=== PATIENT | male | born 1945 | race Caucasian/White ===

== ENCOUNTER 2017-01-08 09:23 | Inpatient (IN) | payer MEDICARE, MEDICAID ==
[~2017-01-08] VITALS: Ht 172.7 cm; Wt 78.0 kg
[~2017-01-08 09:23] MED LIST: Aspirin PO; Bisacodyl RC; DULO60CA45 PO; FINA5TAB4 PO; GABA600T2 PO; HYDR-3976 PO; LAMO300T2 PO; LORA1TAB PO; LOXA25CA PO; LOXA50CA PO; METF10002 PO; TAMS0.4C34 PO
--- NOTE | 2017-01-08 09:25 | NUR ---
AAOX3, CAME TO ER C/O GENERALIZED WEAKNESS, FACE SYMMETRICAL, NEURO INTACT. SKIN IS WARM AND DRY. RESP IS EVEN AND UNLABORED WITH NAD NOTED. LB=[id number] IN THE FIELD. DR KEMP AT BS FOR EVKEITH.
[2017-01-08] MEDS ORDERED: IV NS 0.9% 1,000 ML BAG IV ONE (09:30)
[2017-01-08] MEDS ORDERED: IV SET PRIMARY PUMP SET 1 EA INFUS.SET MC ONE ×2 (09:40→15:01)
[2017-01-08] MEDS ORDERED: IV NS 0.9% 1,000 ML ONE (09:40)
--- NOTE | 2017-01-08 09:47 | NUR ---
DANO DONATO G1 ACCESSED. BLOOD SAMPLE SENT TO LAB
--- NOTE | 2017-01-08 09:49 | NUR ---
PATIENT WAS TAKEN TO CT
[2017-01-08 09:50] LABS: BASOPHILS % (AUTO) 0.6 % (0.0-2.0); EOSINOPHILS # (AUTO) 0.2 /CMM (0.0-0.7); EOSINOPHILS % (AUTO) 2.4 % (0.0-6.0); HEMATOCRIT 42 % (39-51); HEMOGLOBIN 13.4 g/dL (13.5-17.5); LYMPHOCYTES # (AUTO) 2.9 /CMM (0.8-4.8); LYMPHOCYTES % (AUTO) 36.7 % (20.0-44.0); MEAN CORPUSCULAR HEMOGLOBIN 31 PG (26.0-33.0); MEAN CORPUSCULAR HGB CONC 32 g/dl (31.0-36.0); MEAN CORPUSCULAR VOLUME 96 fL (80-96); MONOCYTES # (AUTO) 0.7 /CMM (0.1-1.30); MONOCYTES % (AUTO) 8.9 % (2.0-12.0); NEUTROPHILS # (AUTO) 4.1 /CMM (1.8-8.9); NEUTROPHILS % (AUTO) 51.4 % (43.0-81.0); PLATELET COUNT (AUTO) 300 /CMM (150-450); RDW COEFFICIENT OF VARIATION 12.9 (11.5-15.0); RED BLOOD CELL COUNT(AUTO) 4.36 MIL/uL (4.5-6.0); WHITE BLOOD COUNT (AUTO) 7.9 K/uL (4.3-11.0)
[2017-01-08 10:00] LABS: CALCIUM, SERUM 9.1 mg/dL (8.5-10.1); CARBON DIOXIDE 27 mmol/L (21-32); CHLORIDE 104 mmol/L (98-107); CREATININE 0.9 mg/dL (0.6-1.3); GLUCOSE 147 mg/dL (74-106); POTASSIUM 4.1 mmol/L (3.5-5.1); SODIUM SERUM 140 mmol/L (136-145); UREA NITROGEN, BLOOD 10 mg/dL (7-18)
[2017-01-08 10:04] LABS: INR 0.97 (0.87-1.13); PROTHROMBIN TIME 10.1 SECS (9.5-12.7)
--- NOTE | 2017-01-08 10:04 | NUR ---
URINAL PROVIDED FOR URINE COLLECTION
[2017-01-08 10:06] LABS: ALANINE AMINOTRANSFERASE 13 U/L (12-78); ALBUMIN 3.8 g/dL (3.4-5.0); ALKALINE PHOSPHATASE 63 U/L (46-116); ASPARTATE AMINOTRANSFERASE 11 U/L (15-37); BILIRUBIN,DIRECT 0.1 mg/dL (0.0-0.2); BILIRUBIN,TOTAL 0.4 mg/dL (0.2-1.0); TOTAL PROTEIN, SERUM 7.3 g/dL (6.4-8.2)
[2017-01-08 10:08] LABS: TROPONIN I < 0.017 ng/mL (0.00-0.056)
[2017-01-08] MEDS ORDERED: HYDR-3652 PO (10:32)
[2017-01-08] MEDS ORDERED: NAPR375T3 PO (10:32)
[2017-01-08 10:58] LABS: APPEARANCE,URINE Clear (CLEAR); BILIRUBIN,URINE Negative (NEGATIVE); BLOOD, URINE Negative Ery/uL (NEGATIVE); COLOR,URINE Yellow (YELLOW); KETONES,URINE Negative (NEGATIVE); LEUKOCYTE ESTERASE ,URINE Trace (NEGATIVE); NITRITE, URINE Negative (NEGATIVE); PROTEIN,URINE Negative (NEGATIVE); UGLUCOSE Negative (NEGATIVE); UROBILINOGEN,URINE 0.2 EU/dL (0.2)
--- NOTE | 2017-01-08 10:58 | NUR ---
PAGED DR. Arvin ECHOLS HUMAN RESOURCES ANALYST PANEL
[2017-01-08 11:07] LABS: THYROID STIMULATING HORMONE 1.742 uIU/mL (0.358-3.74)
[2017-01-08 11:08] LABS: BACTERIA,URINE None seen /HPF (None Seen); RBC,URINE 0-2 /HPF (0-2); SQUAMOUS EPITHELIAL CELL,UR Few /HPF (None Seen)
--- NOTE | 2017-01-08 11:34 | NUR ---
REPORT GIVEN TO NURSE [place] FOR RAMIRO
[2017-01-08 12:00] VITALS: BP 130/81
--- NOTE | 2017-01-08 12:00 | NUR ---
METALLIC YARN SLITTING MACHINE OPERATOR NOTES RECEIVED NEW ADMISSION FROM ER VIA [facility]. PATIENT A/O X 4, IN NO APPARENT DISTRESS, DENIES PAIN, DENIES SOB. IV LINE ON RAC PATENT. SKIN ASSESSMENT DONE NOTED WITH SACRAL REDNESS. ALL NEEDS MET, KEPT CLEAN AND DRY. CALL LIGHT WITHIN REACH. AWAITING ADMISSION ORDERS.
[2017-01-08] MEDS ORDERED: MAGNESIUM HYDROXIDE 30 ML UDC PO PRN (13:00)
[2017-01-08] MEDS: NAPROXEN 375 MG TABLET PO SCH ×2 (13:00→16:41)
[2017-01-08] MEDS ORDERED: MAG HYDROX/AL HYDROX/SIMETH 30 ML UDC PO PRN (13:00)
[2017-01-08] MEDS ORDERED: ONDANSETRON HCL/PF 4 MG/2 ML VIAL IVP PRN (13:00)
[2017-01-08] MEDS ORDERED: ZOLPIDEM TARTRATE 5 MG TABLET PO PRN (13:00)
[2017-01-08] MEDS ORDERED: ACETAMINOPHEN 325 MG TABLET PO PRN (13:00)
[2017-01-08] MEDS ORDERED: LamoTRIgine 100 MG TABLET PO SCH (13:30)
[2017-01-08] MEDS ORDERED: LOXAPINE SUCCINATE PO SCH (13:30)
[2017-01-08] MEDS: TAMSULOSIN 0.4 MG CAP.SR.24H PO SCH (15:07)
[2017-01-08] MEDS: GABAPENTIN 300 MG CAPSULE PO SCH ×2 (15:07→16:41)
[2017-01-08] MEDS: FINASTERIDE (5 MG) 5 MG TABLET PO SCH (15:07)
[2017-01-08 16:00] VITALS: BP 130/76
[2017-01-08] MEDS: METFORMIN 500 MG TABLET PO SCH (16:40)
[2017-01-08] MEDS: HYDROCODONE/APAP 5/325MG 1 EACH TABLET PO PRN (16:43)
[2017-01-08] MEDS: IV NS 0.9% 1,000 ML IV PRN (17:46)
--- NOTE | 2017-01-08 18:30 | NUR ---
INFORMATION ARCHITECT CLOSING NOTES PATIENT IN BED, A/OX4, NO APPARENT DISTRESS NOTED. ALL DUE MEDS GIVE, ALL NEEDS MET. ON TELE MONITORING SR78. IV LINE ON RAC PATENT INFUSING NS AT 75ML/HR. WILL ENDORSE CARE TO PM SHIFT.
--- NOTE | 2017-01-08 19:40 | NUR ---
TELE/RN NOTES RECEIVED PT. LYING IN BED. AWAKE, ALERT AND ORIENTED X3. BREATHING EVEN AND UNLABORED ON ROOM AIR. NO SOB, RESPIRATORY DISTRESS OR COMPLAINTS OF PAIN NOTED AT THIS TIME. PT. WITH HANDKERCHIEF CUTTER PRESENT AND INTACT. CURRENT RHYTHM = SINUS RHYTHM HR 72. PT. WITH RIGHT AC 18 GAUGE PERIPHERAL IV PRESENT, PATENT AND INTACT ADMINISTERING TO PT. NS @ 75 ML/HR. BED IN LOWEST POSITION, CALL LIGHT WITHIN REACH, WILL CONTINUE TO MONITOR.
[2017-01-08 20:00] VITALS: BP 144/79
[2017-01-08] MEDS: LamoTRIgine 100 MG TABLET PO SCH (20:29)
[2017-01-09] VITALS: BP 134/84
[2017-01-09] MEDS: HYDROCODONE/APAP 5/325MG 1 EACH TABLET PO PRN (04:02)
[2017-01-09 04:07] VITALS: BP 138/81
[2017-01-09 06:44] VITALS: BP 134/78
--- NOTE | 2017-01-09 06:47 | NUR ---
TELE/RN NOTES PT. LYING IN BED RESTING. BREATHING EVEN AND UNLABORED ON ROOM AIR. NO SOB, RESPIRATORY DISTRESS OR COMPLAINTS OF PAIN NOTED AT THIS TIME. PT. WITH HAND SCRAPER PRESENT AND INTACT. CURRENT RHYTHM = SINUS RHYTHM HR 68. PT. WITH RIGHT AC 18 GAUGE PERIPHERAL IV PRESENT, PATENT AND INTACT ADMINISTERING TO PT. NS @ 75 ML/HR. ALL PT. NEEDS MET. PT. ENCOURAGED TO TURN AND REPOSITION Q2H AND NEEDED THROUGHOUT SHIFT. BED IN LOWEST POSITION, CALL LIGHT WITHIN REACH, WILL ENDORSE TO DAYSHIFT NURSE FOR CONTINUITY OF CARE.
[2017-01-09 07:20] LABS: BASOPHILS % (AUTO) 0.3 % (0.0-2.0); EOSINOPHILS # (AUTO) 0.2 /CMM (0.0-0.7); EOSINOPHILS % (AUTO) 1.7 % (0.0-6.0); HEMATOCRIT 41 % (39-51); HEMOGLOBIN 13.8 g/dL (13.5-17.5); LYMPHOCYTES # (AUTO) 4.6 /CMM (0.8-4.8); LYMPHOCYTES % (AUTO) 45.9 % (20.0-44.0); MEAN CORPUSCULAR HEMOGLOBIN 32 PG (26.0-33.0); MEAN CORPUSCULAR HGB CONC 34 g/dl (31.0-36.0); MEAN CORPUSCULAR VOLUME 96 fL (80-96); MONOCYTES # (AUTO) 0.8 /CMM (0.1-1.30); MONOCYTES % (AUTO) 8.3 % (2.0-12.0); NEUTROPHILS # (AUTO) 4.4 /CMM (1.8-8.9); NEUTROPHILS % (AUTO) 43.8 % (43.0-81.0); PLATELET COUNT (AUTO) 280 /CMM (150-450); RDW COEFFICIENT OF VARIATION 13.8 (11.5-15.0); RED BLOOD CELL COUNT(AUTO) 4.26 MIL/uL (4.5-6.0)
--- NOTE | 2017-01-09 07:25 | NUR ---
INGOT STRIPPER OPENING RECEIVED PATIENT A/OX4 DENIES SOB, DIFFICULTY BREATHING OR PAIN AT THIS TIME. TELE NSR. PATIENT AWARE NOT TO GET OUT OF BED WITHOUT PHYSICAL THERAPY OR TAIL TRIMMER/RN AT SIDE. PATIENT STATES NO NEEDS AT THIS TIME AND APPEARS STABLE. PATIENT AWARE PENDING NEURO EVAL AND PHYSICAL THERAPY CONSULTS TODAY. CALL LIGHT IN REACH, BED LOWERED AND LOCKED, RAILS UPX3 FOR SAFETY AND WILL ROUND Q2H OR LESS PER NEEDS
[2017-01-09 07:26] LABS: CALCIUM, SERUM 9.1 mg/dL (8.5-10.1); CARBON DIOXIDE 25 mmol/L (21-32); CHLORIDE 106 mmol/L (98-107); CREATININE 0.7 mg/dL (0.6-1.3); GLUCOSE 123 mg/dL (74-106); MAGNESIUM 1.7 mg/dL (1.8-2.4); PHOSPHORUS 3.6 mg/dL (2.5-4.9); POTASSIUM 3.7 mmol/L (3.5-5.1); SODIUM SERUM 141 mmol/L (136-145); UREA NITROGEN, BLOOD 8 mg/dL (7-18)
[2017-01-09 08:00] VITALS: BP 134/78
[2017-01-09 08:19] LABS: CHOLESTEROL 248 mg/dL (<200); HDL CHOLESTEROL 47 mg/dL (40-60); LDL 169 mg/dL (0-99); THYROID STIMULATING HORMONE 1.436 uIU/mL (0.358-3.74); TRIGLYCERIDES 171 mg/dL (30-150)
[2017-01-09] MEDS: FINASTERIDE (5 MG) 5 MG TABLET PO SCH (08:20)
[2017-01-09] MEDS: LamoTRIgine 100 MG TABLET PO SCH (08:20)
[2017-01-09] MEDS: METFORMIN 500 MG TABLET PO SCH ×2 (08:20→22:02)
[2017-01-09] MEDS: GABAPENTIN 300 MG CAPSULE PO SCH ×3 (08:20→16:24)
[2017-01-09] MEDS: IV NS 0.9% 1,000 ML IV PRN (08:20)
[2017-01-09] MEDS: TAMSULOSIN 0.4 MG CAP.SR.24H PO SCH (08:20)
[2017-01-09] MEDS: NAPROXEN 375 MG TABLET PO SCH ×2 (08:21→22:02)
[2017-01-09] MEDS ORDERED: LAMICTAL 300 MG PO SCH (09:00)
[2017-01-09] MEDS: DULOXETINE HCL 30 MG CAPSULE.DR PO SCH (09:18)
--- NOTE | 2017-01-09 09:57 | NUR ---
MS RN NOTES SPOKE WITH SARAH OVERHEAD CRANE TRUCK LOADER TO NOTIFY OF MD PLAN FOR REB/HOME HEALTH PT
--- NOTE | 2017-01-09 11:02 | NUR ---
WOUND CARE CONSULT: PT PRESENTS WITH RASH TO INNER BUTTOCKS, PRESENT ON ADMISSION. SOME SKIN STAINING AND IRRITATION NOTED. RECOMMENDATIONS DISCUSSED WITH NURSING STAFF. WILL SEE PRN. STOKES SCORE CURRENTLY 16. IN AGREEMENT WITH PLAN OF CARE. Addendum: 01/09/17 at 1104 by KEY SANCHEZ WNDNU Amended: Links added.
[2017-01-09] MEDS ORDERED: SECONDARY IV SET 1 EA INFUS.SET MC ONE (11:46)
[2017-01-09] MEDS: Z GUARD REMEDY 2 OZ OINT TP PRN ×2 (11:55→16:58)
[2017-01-09] MEDS: Magnesium 1GM/D5W 100ML PREMIX 100 ML IV SCH ×2 (11:55→13:02)
--- NOTE | 2017-01-09 12:01 | NUR ---
MS RN NOTES PATIENT PROVIDED LAMICTAL. TAKEN DOWN TO PHARMACY
--- NOTE | 2017-01-09 12:46 | NUR ---
MS RN NOTES NOTIFIED MD PATIENT IS DIABETIC OK ORDER ACHS MILD SLIDING SCALE.
[2017-01-09] MEDS ORDERED: DEXTROSE 50%-WATER 50 ML DISP.SYRIN IV PRN (13:00)
[2017-01-09] MEDS ORDERED: INSULIN REGULAR, HUMAN 100 UNIT/ML 3 ML VIAL SQ PRN (13:00)
[2017-01-09] MEDS: CLOTRIMAZOLE 1% 15 GM TUBE TP SCH ×2 (13:03→16:22)
--- NOTE | 2017-01-09 13:15 | NUR ---
MS RN NOTES NOTIFIED MD OF PATIENT UPDATED MEDICATIONS OK TO UPDATE. LAMICTAL 300MG HS AND LOXAPINE 75MG HS. DC BID LAMICTAL AND OK TO CHANGE TO Q12H METFORMIN AND NEURONTIN
--- NOTE | 2017-01-09 13:20 | NUR ---
MS RN NOTES PATIENT HAS ALL MEDICATIONS AT BEDSIDE. EXPLAINED WE CANNOT HAVE THESE AT BEDSIDE AND I NEED TO TAKE THEM TO THE PHARMACY OR CAREGIVER NEEDS TO REMOVE THEM FROM THE ROOM. PER PATIENT CAREGIVER WILL TAKE HOME. TAKING LOXAPINE TO PHARMACY TO CONTINUE FOR PATIENT
[2017-01-09] MEDS ORDERED: DULOXETINE HCL 30 MG CAPSULE.DR PO SCH (13:30)
[2017-01-09 16:00] VITALS: BP 124/78
[2017-01-09] MEDS: LORAZEPAM 1 MG TABLET PO PRN (16:20)
--- NOTE | 2017-01-09 16:26 | NUR ---
MS RN NOTES EDUCATED PATIENT ON IMPORTANCE OF TURNING AND OFFLOADING SACRUM. APPLIED PILLOWS TO OFFLOAD AND PATIENT REPOSITIONS TO SACRUM AGAIN. WILL CONTINUE TO REMIND AND ASSIST PATIENT TO TURN AND OFFLOAD.
[2017-01-09] MEDS: BLOOD SUGAR DIAGNOSTIC 1 EACH STRIP IN SCH ×2 (16:59→22:14)
[2017-01-09] MEDS ORDERED: GABAPENTIN 400 MG CAPSULE PO SCH (17:00)
--- NOTE | 2017-01-09 18:41 | NUR ---
MS RN CLOSING PATIENT STABLE NO COMPLICATIONS NO CHANGES. PATIENT WAS ABLE TO GET UP TO THE BSC TODAY WITH NO COMPLICATIONS. ALL DUE MEDS GIVEN AND ALL NEEDS MET. CALL LIGHT IN REACH, BED LOWERED AND LOCKED, RAILS UPX3 FOR SAFETY WITH BED ALARM ON AND WILL ENDORSE CARE TO RN FOR RAMIRO. PATIENT IS DOING BETTER AND TURNING AND OFFLOADING DUE TO BEING MORE MOBILE TODAY.
--- NOTE | 2017-01-09 19:20 | NUR ---
MS/RN NOTES RECEIVED PT. LYING IN BED RESTING. PT. IS EASILY AROUSABLE TO NAME. AWAKE, ALERT AND ORIENTED X3. BREATHING EVEN AND UNLABORED ON ROOM AIR. NO SOB, RESPIRATORY DISTRESS OR COMPLAINTS OF PAIN NOTED AT THIS TIME. PT. WITH RIGHT AC 18 GAUGE PERIPHERAL IV PRESENT, PATENT AND INTACT. BED IN LOWEST POSITION, SIDE RAILS UP X2, BED ALARM ON, CALL LIGHT WITHIN REACH, WILL CONTINUE TO MONITOR.
[2017-01-09 20:47] VITALS: BP 117/74
[2017-01-09] MEDS ORDERED: LOXAPINE 25 MG PO SCH (22:00)
[2017-01-09] MEDS ORDERED: LAMICTAL 150 MG PO SCH (22:00)
[2017-01-09] MEDS ORDERED: LamoTRIgine 100 MG TABLET PO SCH ×2 (22:00)
--- NOTE | 2017-01-09 23:00 | NUR ---
MS/RN NOTES PT. REFUSING IV FLUIDS AT THIS TIME. PT. STATES HE DRINKS ENOUGH WATER AND DOES NOT WANT TO BE ATTACHED TO THE IV. EDUCATED PT. ABOUT IMPORTANCE OF IV HYDRATION AND ENCOURAGED PT. TO DRINK MORE WATER. PT. VERBALIZED UNDERSTANDING. WILL CONTINUE TO MONITOR.
[2017-01-10] MEDS: BLOOD SUGAR DIAGNOSTIC 1 EACH STRIP IN SCH ×2 (06:35→12:04)
--- NOTE | 2017-01-10 06:50 | NUR ---
MS/RN NOTES PT. LYING IN BED RESTING. PT. IS EASILY AROUSABLE TO NAME. AWAKE, ALERT AND ORIENTED X3. BREATHING EVEN AND UNLABORED ON ROOM AIR. NO SOB, RESPIRATORY DISTRESS OR COMPLAINTS OF PAIN NOTED AT THIS TIME AND THROUGHOUT SHIFT. EDUCATED PT. ABOUT IMPORTANCE OF TURNING AND REPOSITIONING EVERY 2 HOURS TO PREVENT PRESSURE SORES. PT. VERBALIZED UNDERSTANDING BUT CONTINUES TO NEED CONSTANT REMINDING. PT. WITH RIGHT AC 18 GAUGE PERIPHERAL IV PRESENT, PATENT AND INTACT. PT. CONTINUES TO REFUSE IV FLUIDS. ALL PT. NEEDS MET. BED IN LOWEST POSITION, SIDE RAILS UP X2, BED ALARM ON, CALL LIGHT WITHIN REACH, WILL ENDORSE TO DAYSHIFT NURSE FOR CONTINUITY OF CARE.
--- NOTE | 2017-01-10 07:00 | NUR ---
MS RN OPENING RECEIVED PATIENT A/OX4 FORGETFUL AT TIMES. NO SOB, DIFFICULTY BREATHING OR PAIN AT THIS TIME. PATIENT HOWEVER STATES HE HAS CONSTANT SCIATICA PAIN BUT IS MAYBE A 2/10 AND TOLERABLE. ALL NEEDS IN REACH AND PATIENT STATES NO NEEDS AT THIS TIME. EDUCATED ON MD PLAN FOR DC TO ACUTE REHAB AND PATIENT STATES UNDERSTANDING. UPDATED ON LABS FOR THIS AM. CALL LIGHT IN REACH, BED LOWERED AND LOCKED, RAILS UPX3 FOR SAFETY AND WILL ROUND Q2H OR LESS PER NEEDS. EDUCATED PATIENT ON TURNING AND OFFLOADING, GETTING INTO CHAIR TODAY WITH ASSISTANCE. PATIENT NEEDS REMINDERS TO TURN AND OFFLOAD.
[2017-01-10 07:23] LABS: CALCIUM, SERUM 9.2 mg/dL (8.5-10.1); CARBON DIOXIDE 25 mmol/L (21-32); CHLORIDE 107 mmol/L (98-107); CREATININE 0.7 mg/dL (0.6-1.3); GLUCOSE 116 mg/dL (74-106); POTASSIUM 4.1 mmol/L (3.5-5.1); SODIUM SERUM 142 mmol/L (136-145); UREA NITROGEN, BLOOD 11 mg/dL (7-18)
[2017-01-10 08:00] VITALS: BP 106/71
[2017-01-10] MEDS: TAMSULOSIN 0.4 MG CAP.SR.24H PO SCH (08:15)
[2017-01-10] MEDS: NAPROXEN 375 MG TABLET PO SCH (08:16)
[2017-01-10] MEDS: GABAPENTIN 300 MG CAPSULE PO SCH ×2 (08:16→12:04)
[2017-01-10] MEDS: FINASTERIDE (5 MG) 5 MG TABLET PO SCH (08:16)
[2017-01-10] MEDS: DULOXETINE HCL 30 MG CAPSULE.DR PO SCH (08:16)
[2017-01-10] MEDS: METFORMIN 500 MG TABLET PO SCH (08:16)
[2017-01-10] MEDS: CLOTRIMAZOLE 1% 15 GM TUBE TP SCH (08:17)
[2017-01-10] MEDS: Z GUARD REMEDY 2 OZ OINT TP PRN (08:18)
--- NOTE | 2017-01-10 08:47 | NUR ---
MS RN NOTES PER MD ECHOLS OK TO DC IVF PATIENT REFUSING. GOOD ORAL INTAKE.
[2017-01-10] MEDS: LORAZEPAM 1 MG TABLET PO PRN (14:10)
--- NOTE | 2017-01-10 14:50 | NUR ---
MS RN NOTES PATIENT EDUCATED ON DISCHARGE AND STATED UNDERSTANDING. WILL CALL ENCINO FOR REPORT. PATIENT BELONGINGS ALL ACCOUNTED FOR AND SIGNED. PATIENT ASSISTED TO HAVE BED BATH COMPLETED AND ASSISTED TO CHAIR.
--- NOTE | 2017-01-10 15:02 | NUR ---
MS RN NOTES CALLED AND GAVE REPORT TO MARK VILLAGOMEZ AT [facility]
[2017-01-10] MEDS: HYDROCODONE/APAP 5/325MG 1 EACH TABLET PO PRN (15:10)
--- NOTE | 2017-01-10 15:24 | NUR ---
MS RN NOTES IV REMOVED PRESSURE AND DRESSING APPLIED NO BLEEDING NOTED. PATIENT STABLE AT THIS TIME AMBULANCE HERE FOR FARM REPORTER. PER PATIENT REQUEST DEEPTHI ROBERTS BROUGHT UP BEFORE PATIENT TRANSPORT
--- NOTE | 2017-01-10 15:50 | NUR ---
MS PIPE FITTER MAINTENANCE PATIENT STABLE NO COMPLICATIONS NO CHANGES. ALL DUE MEDS GIVEN AND ALL NEEDS MET. PATIENT AT BASELINE. MEDICATIONS GIVEN TO EMT TO GIVE TO ASHWIN VILLAGOMEZ AT [facility]. PATIENT LEFT IN STABLE CONDITION NO COMPLICATIONS.
== END 2017-01-10 16:10 | DRG 948 ==
LOC: ER 09:24 → TELE 11:23 → MED 01-09 08:50
PROVIDERS: ADMIT Internal Medicine; ATTEND Internal Medicine
DX: R53.1 Weakness (principal); I69.851 Hemiplegia and hemiparesis following other cerebrovascular disease affecting right dominant side; M32.9 Systemic lupus erythematosus, unspecified; M19.90 Unspecified osteoarthritis, unspecified site; J44.9 Chronic obstructive pulmonary disease, unspecified; I10 Essential (primary) hypertension; F31.9 Bipolar disorder, unspecified; Z96.659 Presence of unspecified artificial knee joint
CPT/HCPCS: 36415; 70450-TC; 71010-TC; 80048-TC; 80061-TC; 80076-TC; 81000-TC; 82550-TC; 82962-TC; 83605-TC; 83735-TC; 84100-TC; 84443-TC; 84484-TC; 85025-TC; 85730-TC; 87040-TC; 87081-TC; 87086-TC; 93307-TC; 97001-TC; A4606; J1815; J3475; J7030; Z7610

== ENCOUNTER 2018-03-31 16:25 | Inpatient (IN) | payer MEDICARE, MEDICAID ==
[~2018-03-31] VITALS: Ht 172.7 cm; Wt 70.3 kg
[~2018-03-31 16:25] MED LIST changes: -Aspirin PO; -Bisacodyl RC; -HYDR-3976 PO; +HYDR-4209 PO; -LORA1TAB PO; -LOXA50CA PO; +METF-442 PO; -METF10002 PO; +NAPR-1192 PO
--- NOTE | 2018-03-31 17:05 | NUR ---
[facility] FOR GEROPSYCH ADMISSION, ON 5150 HOLD FOR DTS PLAN IS TO OD WITH LORAZEPAM. PATIENT IS CALM AND COOPERATIVE. A/OX 2, BREATHING EVEN AND UNLABORED. NO SOB, NAD, VITALS STABLE. SAFETY AND COMFORT MEASURES IN PLACE. AWAITING MD ORDERS.
--- NOTE | 2018-03-31 17:15 | NUR ---
SALES AND MANAGEMENT TRAINEE AT BEDSIDE FOR BLOOD DRAW.
--- NOTE | 2018-03-31 17:26 | NUR ---
PER DR. MATOS, NO NEED TO COLLECT URINE SAMPLE AT THIS TIME.
[2018-03-31 17:27] LABS: BASOPHILS % (AUTO) 0.5 % (0.0-2.0); EOSINOPHILS % (AUTO) 1.3 % (0.0-6.0); HEMATOCRIT 41 % (39-51); HEMOGLOBIN 13.5 g/dL (13.5-17.5); LYMPHOCYTES # (AUTO) 2.7 /CMM (0.8-4.8); LYMPHOCYTES % (AUTO) 35.9 % (20.0-44.0); MEAN CORPUSCULAR HGB CONC 33 g/dl (31.0-36.0); MEAN CORPUSCULAR VOLUME 96 fL (80-96); MONOCYTES # (AUTO) 0.6 /CMM (0.1-1.30); MONOCYTES % (AUTO) 7.7 % (2.0-12.0); NEUTROPHILS % (AUTO) 54.6 % (43.0-81.0); PLATELET COUNT (AUTO) 359 /CMM (150-450); RDW COEFFICIENT OF VARIATION 12.5 (11.5-15.0); RED BLOOD CELL COUNT(AUTO) 4.26 MIL/uL (4.5-6.0); WHITE BLOOD COUNT (AUTO) 7.4 K/uL (4.3-11.0)
[2018-03-31 17:39] LABS: CALCIUM, SERUM 9.6 mg/dL (8.5-10.1); CARBON DIOXIDE 30 mmol/L (21-32); CHLORIDE 103 mmol/L (98-107); CREATININE 0.6 mg/dL (0.6-1.3); GLUCOSE 102 mg/dL (74-106); POTASSIUM 4.4 mmol/L (3.5-5.1); SODIUM SERUM 138 mmol/L (136-145); UREA NITROGEN, BLOOD 13 mg/dL (7-18)
[2018-03-31 17:49] LABS: ALANINE AMINOTRANSFERASE 19 U/L (12-78); ALBUMIN 3.9 g/dL (3.4-5.0); ALKALINE PHOSPHATASE 74 U/L (46-116); ASPARTATE AMINOTRANSFERASE 11 U/L (15-37); BILIRUBIN,DIRECT 0.1 mg/dL (0.0-0.2); BILIRUBIN,TOTAL 0.3 mg/dL (0.2-1.0); SALICYLATE 4.7 mg/dL (2.8-20.0); TOTAL PROTEIN, SERUM 7.4 g/dL (6.4-8.2)
[2018-03-31 17:52] LABS: ACETAMINOPHEN < 0 ug/ml (10-30); ALCOHOL, BLOOD 0 mg/dL (0-0)
[2018-03-31] MEDS ORDERED: BUSP10TA35 PO (18:08)
--- NOTE | 2018-03-31 18:36 | NUR ---
REPORT GIVEN TO ZULEIKA VILLAGOMEZ FOR RAMIRO UPON ADMISSION.
--- NOTE | 2018-03-31 18:40 | NUR ---
PATIENT TRANSPORTED TO [facility] FOR ADMISSION
[2018-03-31 19:00] VITALS: BP 155/84
--- NOTE | 2018-03-31 19:00 | NUR ---
GPS-RN ADMITTED A 72-Y/O MALE, ADMITTED FROM [facility]. PT IS ON 5150 HOLD FOR DTS. PER HOLD PATIENT STATED HE HAS SUICIDAL THOUGHTS AND PLANS TO TAKE ALL HIS MEDICATION. PATIENT REPORTED "ESCAPE" PLAN OF TAKING HIS MEDICATION. PATIENT HAS STOCK PILED 7 BOTTLES OF LORAZEPAM. UPON FACE TO FACE ASSESSMENT, PATIENT APPEARS TO BE ALERT, ORIENTED X3-4, DEPRESSED. DENIES SI/HI AT THIS TIME. NO ACUTE DISTRESS NOTED. CONTINENT OF BOWEL AND BLADDER. DENIES PAIN OR DISCOMFORT. AMBULATORY WITH ASSISTIVE DEVICE. BELONGINGS INVENTORIED AND CHECKED FOR CONTRABAND. REVIEWED PATIENT'S RIGHTS AND VERBALIZED UNDERSTANDING. PATIENT IS UNDER THE PSYCHIATRIC CARE OF DR. MULLINS, ORDERS OBTAINED, AND UNDER THE MEDICAL CARE OF DR. MEREDITH, MED RECON DONE. SKIN BODY ASSESSMENT DONE. MRSA SCREENING DONE. BED LOCKED AND PLACED IN LOWEST POSITION. ROOM SAFETY CHECKED. FALL PRECAUTIONS MAINTAINED. WILL CONTINUE TO MONITOR Q15MIN ROUNDS FOR SAFETY AND BEHAVIOR.
[2018-03-31 20:26] VITALS: BP 161/71
[2018-03-31] MEDS ORDERED: MAGNESIUM HYDROXIDE 30 ML UDC PO PRN (20:30)
[2018-03-31] MEDS ORDERED: MAG HYDROX/AL HYDROX/SIMETH 30 ML UDC PO PRN (20:30)
[2018-03-31] MEDS ORDERED: GABAPENTIN 300 MG CAPSULE PO SCH (21:00)
[2018-03-31] MEDS: TEMAZEPAM 7.5 MG CAPSULE PO PRN (23:16)
[2018-04-01 07:01] LABS: CREATININE 0.7 mg/dL (0.6-1.3)
[2018-04-01 07:14] LABS: CHOLESTEROL 155 mg/dL (<200); HDL CHOLESTEROL 61 mg/dL (40-60); LDL 86 mg/dL (0-99); TRIGLYCERIDES 69 mg/dL (30-150)
[2018-04-01 08:00] VITALS: BP 150/64
[2018-04-01] MEDS: FINASTERIDE (5 MG) 5 MG TABLET PO SCH (08:37)
[2018-04-01] MEDS: TAMSULOSIN 0.4 MG CAP.SR.24H PO SCH (08:37)
[2018-04-01] MEDS: METFORMIN 500 MG TABLET PO SCH ×2 (08:37→17:59)
[2018-04-01] MEDS ORDERED: LAMOTRIGINE 300 MG PO SCH (09:00)
--- NOTE | 2018-04-01 09:56 | NUR ---
WOUND CARE CONSULT: PT PRESENTS WITH SACRAL ULCER, UNSTAGEABLE, PRESENT ON ADMISSION. PT STATES WAS LYING AROUND A LOT AT HIS PREVIOUS RESIDENCE. RECOMMENDATIONS MADE FOR WOUND CARE AND SKIN PROTECTION. DISCUSSED WITH NURSING STAFF. PT IS AMBULATORY WITH [facility]. WILL SEE PRN. PRINCE IN AGREEMENT WITH PLAN OF CARE. Addendum: 04/01/18 at 1012 by KEY SANCHEZ WNDNU Amended: Links added.
[2018-04-01] MEDS ORDERED: HYDROGEL DRESSING 90 GM TUBE TP PRN (10:00)
[2018-04-01] MEDS ORDERED: Z GUARD REMEDY 2 OZ OINT TP PRN (10:00)
--- NOTE | 2018-04-01 11:09 | NUR ---
CHELY contacted pts friend Stephen [phone] to discuss pts discharge plan and transportation home. Pts friend stated he would be able to pick pt up from hospital and transport home via private vehicle when ready for discharge. CHELY will contact pts friend when pt is ready and stable for discharge.
[2018-04-01] MEDS: GABAPENTIN 400 MG CAPSULE PO SCH ×3 (13:00→17:59)
[2018-04-01] MEDS: busPIRone 5 MG TABLET PO SCH ×3 (13:00→17:59)
[2018-04-01] MEDS: LamoTRIgine 100 MG TABLET PO SCH ×2 (13:22→20:20)
[2018-04-01] MEDS: HYDROGEL DRESSING 90 GM TUBE TP SCH (13:46)
--- NOTE | 2018-04-01 14:09 | NUR ---
INITIAL DISCHARGE PLAN: Patient wishes to be discharged home to [id number] [place] [address] [address] [place] [address] . Pts friend Stephen [phone] has confirmed he will transport pt home when ready for discharge. SW will help form a safe and proper discharge in collaboration with pt and MD.
[2018-04-01 16:00] VITALS: BP 108/73
[2018-04-01 20:35] VITALS: BP 109/65
[2018-04-01] MEDS: TEMAZEPAM 7.5 MG CAPSULE PO PRN (21:22)
--- NOTE | 2018-04-01 21:23 | NUR ---
TEMAZEPAM 7.5 MG CAP 1 PO GIVEN.
[2018-04-01] MEDS: LORAZEPAM 0.5 MG TABLET PO PRN (23:59)
--- NOTE | 2018-04-01 23:59 | NUR ---
LORAZEPAM 0.5 MG TAB 1 PO GIVEN, ANXIOUS UNABLE TO SLEEP.
[2018-04-02 08:00] VITALS: BP 91/65
[2018-04-02] MEDS: GABAPENTIN 400 MG CAPSULE PO SCH ×3 (09:03→16:40)
[2018-04-02] MEDS: METFORMIN 500 MG TABLET PO SCH ×2 (09:03→16:40)
[2018-04-02] MEDS: busPIRone 5 MG TABLET PO SCH ×3 (09:03→16:41)
[2018-04-02] MEDS: TAMSULOSIN 0.4 MG CAP.SR.24H PO SCH (09:03)
[2018-04-02] MEDS: LamoTRIgine 100 MG TABLET PO SCH ×2 (09:03→21:31)
[2018-04-02] MEDS: FINASTERIDE (5 MG) 5 MG TABLET PO SCH (09:04)
[2018-04-02] MEDS: HYDROGEL DRESSING 90 GM TUBE TP SCH (09:06)
[2018-04-02] MEDS: ARIPIPRAZOLE 2 MG TABLET PO SCH ×2 (12:30→16:40)
[2018-04-02 16:00] VITALS: BP 111/71
[2018-04-02 20:06] VITALS: BP 111/68
[2018-04-02] MEDS: LORAZEPAM 0.5 MG TABLET PO PRN (21:31)
[2018-04-03 08:00] VITALS: BP 138/73
[2018-04-03] MEDS: TAMSULOSIN 0.4 MG CAP.SR.24H PO SCH (08:54)
[2018-04-03] MEDS: ARIPIPRAZOLE 2 MG TABLET PO SCH ×3 (08:54→17:52)
[2018-04-03] MEDS: LamoTRIgine 100 MG TABLET PO SCH ×2 (08:54→21:24)
[2018-04-03] MEDS: METFORMIN 500 MG TABLET PO SCH ×2 (08:54→17:52)
[2018-04-03] MEDS: busPIRone 5 MG TABLET PO SCH ×3 (08:54→17:52)
[2018-04-03] MEDS: FINASTERIDE (5 MG) 5 MG TABLET PO SCH (08:54)
[2018-04-03] MEDS: GABAPENTIN 400 MG CAPSULE PO SCH ×3 (09:40→17:52)
[2018-04-03] MEDS: HYDROGEL DRESSING 90 GM TUBE TP SCH (09:41)
--- NOTE | 2018-04-03 11:00 | NUR ---
GPS/BOTTLE HOP RENDERED ORDERED
--- NOTE | 2018-04-03 11:58 | NUR ---
CHELY faxed SNF referral to [facility] Address: [address] [facility], [place] [address] for review.
[2018-04-03] MEDS ORDERED: SILVER NITRATE APPLICATOR 1 EA BOX TP ONE (13:30)
--- NOTE | 2018-04-03 13:57 | NUR ---
SW received a phone call from Courtney, admission coordinator at [facility] Address: [address] [place] [address] stating pt has been approved for admission to their facility.
[2018-04-03 16:00] VITALS: BP 133/81
--- NOTE | 2018-04-03 19:24 | NUR ---
GPS/RN ENDORSED TO ONCOMING SHIFT TO HAVE PATIENT SIGN CONSENT FORM FOR PROCEDURE THAT IS SCHEDULED TOMORROW.
[2018-04-03 20:10] VITALS: BP 131/79
[2018-04-03] MEDS: TEMAZEPAM 7.5 MG CAPSULE PO PRN (21:24)
[2018-04-04 08:00] VITALS: BP 106/61
[2018-04-04] MEDS ORDERED: SILVER NITRATE APPLICATOR 1 EA BOX TP STA (08:13)
[2018-04-04] MEDS: ARIPIPRAZOLE 2 MG TABLET PO SCH ×3 (08:50→16:46)
[2018-04-04] MEDS: busPIRone 5 MG TABLET PO SCH ×3 (08:50→16:44)
[2018-04-04] MEDS: GABAPENTIN 400 MG CAPSULE PO SCH ×3 (08:50→16:44)
[2018-04-04] MEDS: TAMSULOSIN 0.4 MG CAP.SR.24H PO SCH (08:50)
[2018-04-04] MEDS: METFORMIN 500 MG TABLET PO SCH ×2 (08:50→16:44)
[2018-04-04] MEDS: FINASTERIDE (5 MG) 5 MG TABLET PO SCH (08:50)
[2018-04-04] MEDS: LamoTRIgine 100 MG TABLET PO SCH ×2 (08:51→22:01)
--- NOTE | 2018-04-04 09:10 | NUR ---
GPS/RN-NOTES SACRAL DEBRIDEMENT WAS DONE BY JO SILVA.
--- NOTE | 2018-04-04 09:22 | NUR ---
CHELY received a phone call from Angie, pts rn case manager hospice at [facility]. Address: [address] [place] [phone] who wanted to discuss pts discharge plan. CHELY informed her that MD is recommending short-term SNF placement for pt and that pt has agreed. Angie was happy to hear that pt accepted to go to a SNF. CHELY will contact Angie with discharge date and SNF placement information once pt is ready for discharge.
[2018-04-04] MEDS: HYDROGEL DRESSING 90 GM TUBE TP SCH (09:36)
--- NOTE | 2018-04-04 11:00 | NUR ---
GPS/RN-NOTES PATIENT WATCHING TV IN THE DAY ROOM,NO ACUTE DISTRESS NOTED.
[2018-04-04 16:00] VITALS: BP 119/69
[2018-04-04 20:00] VITALS: BP 102/70
[2018-04-04] MEDS ORDERED: LamoTRIgine 100 MG TABLET PO ONE (20:00)
[2018-04-04] MEDS: TEMAZEPAM 7.5 MG CAPSULE PO PRN (22:12)
[2018-04-05] MEDS: LORAZEPAM 0.5 MG TABLET PO PRN ×2 (00:23→23:54)
[2018-04-05 08:00] VITALS: BP 107/69
[2018-04-05] MEDS: GABAPENTIN 400 MG CAPSULE PO SCH ×3 (08:46→17:45)
[2018-04-05] MEDS: busPIRone 5 MG TABLET PO SCH ×3 (08:46→17:45)
[2018-04-05] MEDS: FINASTERIDE (5 MG) 5 MG TABLET PO SCH (08:46)
[2018-04-05] MEDS: METFORMIN 500 MG TABLET PO SCH ×2 (08:47→17:45)
[2018-04-05] MEDS: HYDROGEL DRESSING 90 GM TUBE TP SCH (08:48)
[2018-04-05] MEDS: ARIPIPRAZOLE 2 MG TABLET PO SCH ×3 (08:49→17:47)
[2018-04-05] MEDS: TAMSULOSIN 0.4 MG CAP.SR.24H PO SCH (08:49)
[2018-04-05 16:00] VITALS: BP 105/77
[2018-04-05 20:00] VITALS: BP 109/73
[2018-04-05] MEDS: LamoTRIgine 100 MG TABLET PO SCH (20:28)
[2018-04-05] MEDS: TRAZODONE 50 MG TABLET PO SCH (21:27)
[2018-04-05] MEDS: TEMAZEPAM 7.5 MG CAPSULE PO PRN (22:35)
[2018-04-05] MEDS: ACETAMINOPHEN 325 MG TABLET PO PRN (23:54)
[2018-04-06 08:00] VITALS: BP 133/70
[2018-04-06] MEDS: TAMSULOSIN 0.4 MG CAP.SR.24H PO SCH (08:27)
[2018-04-06] MEDS: FINASTERIDE (5 MG) 5 MG TABLET PO SCH (08:27)
[2018-04-06] MEDS: busPIRone 5 MG TABLET PO SCH ×3 (08:27→17:01)
[2018-04-06] MEDS: GABAPENTIN 400 MG CAPSULE PO SCH ×3 (08:28→17:01)
[2018-04-06] MEDS: METFORMIN 500 MG TABLET PO SCH ×2 (08:28→17:01)
[2018-04-06] MEDS: ARIPIPRAZOLE 2 MG TABLET PO SCH ×3 (08:30→17:05)
[2018-04-06] MEDS: HYDROGEL DRESSING 90 GM TUBE TP SCH (11:41)
[2018-04-06 16:00] VITALS: BP 100/63
--- NOTE | 2018-04-06 19:30 | NUR ---
GPS RN NOTE, RECEIVED PATIENT AWAKE AND IN BED, NO S/S OR COMPLAINTS OF PAIN AT THIS TIME. PATIENT IS DISPLAYING NO S/S OF APPARENT DISTRESS AT THIS TIME. PATIENT BREATHING IS UNLABORED WITH EQUAL RISE AND FALL OF THE CHEST. PATIENT IS ALERT AND ORIENTED X 3 ON ROOM AIR WITH A SPO2 OF 96%. PATIENT IS MED COMPLIANT, DISORGANIZED, CALM, COOPERATIVE, AND NEEDS REDIRECTION. PATIENT DENIES SUICIDE IDEATIONS AND HOMICIDAL IDEATIONS AT THIS TIME. PATIENT ASSISTED WITH TURNING AND REPOSITIONING Q 2HRS AND PRN FOR COMFORT AND CIRCULATION. PATIENT HAS NO NEEDS AT THIS TIME. PATIENT EDUCATED ON THE USE OF THE CALL LOPEZ. PATIENT BED SIDE RAILS UP X 2 FOR SAFETY, BED IS LOCKED, LOW, AND I WILL CONTINUE TO MONITOR AND MAINTAIN SAFETY Q15 MIN WITH THE HELP OF STAFF.
[2018-04-06 20:00] VITALS: BP 105/69
[2018-04-06] MEDS: LamoTRIgine 100 MG TABLET PO SCH (20:41)
[2018-04-06] MEDS: ACETAMINOPHEN 325 MG TABLET PO PRN (20:41)
--- NOTE | 2018-04-06 20:41 | NUR ---
GPS RN NOTE, PATIENT HAS A COMPLAINT OF SACRUM PAIN AT 2 OUT 10 ON THE PAIN SCALE AND IS REQUESTING TYLENOL AT THIS TIME. PATIENT VITAL SIGNS ARE STABLE. GAVE TYLENOL 650 MG PO Q6HR PRN ORDERED. WILL REASSESS PAIN AND I WILL CONTINUE TO MONITOR THIS PATIENT.
[2018-04-06] MEDS: TRAZODONE 50 MG TABLET PO SCH (22:08)
[2018-04-07 07:13] LABS: BASOPHILS % (AUTO) 0.5 % (0.0-2.0); EOSINOPHILS % (AUTO) 2.2 % (0.0-6.0); HEMATOCRIT 38 % (39-51); HEMOGLOBIN 12.4 g/dL (13.5-17.5); LYMPHOCYTES # (AUTO) 3.1 /CMM (0.8-4.8); LYMPHOCYTES % (AUTO) 42.6 % (20.0-44.0); MEAN CORPUSCULAR HGB CONC 33 g/dl (31.0-36.0); MEAN CORPUSCULAR VOLUME 99 fL (80-96); MONOCYTES # (AUTO) 0.7 /CMM (0.1-1.30); NEUTROPHILS # (AUTO) 3.2 /CMM (1.8-8.9); NEUTROPHILS % (AUTO) 44.7 % (43.0-81.0); PLATELET COUNT (AUTO) 317 /CMM (150-450); RDW COEFFICIENT OF VARIATION 13.2 (11.5-15.0); RED BLOOD CELL COUNT(AUTO) 3.84 MIL/uL (4.5-6.0); WHITE BLOOD COUNT (AUTO) 7.2 K/uL (4.3-11.0)
[2018-04-07 07:22] LABS: CALCIUM, SERUM 9.5 mg/dL (8.5-10.1); CARBON DIOXIDE 25 mmol/L (21-32); CHLORIDE 102 mmol/L (98-107); CREATININE 0.7 mg/dL (0.6-1.3); GLUCOSE 113 mg/dL (74-106); POTASSIUM 3.9 mmol/L (3.5-5.1); SODIUM SERUM 136 mmol/L (136-145); UREA NITROGEN, BLOOD 12 mg/dL (7-18)
[2018-04-07 09:36] VITALS: BP 126/73
[2018-04-07] MEDS: METFORMIN 500 MG TABLET PO SCH ×2 (09:57→17:05)
[2018-04-07] MEDS: busPIRone 5 MG TABLET PO SCH ×3 (09:57→17:05)
[2018-04-07] MEDS: FINASTERIDE (5 MG) 5 MG TABLET PO SCH (09:57)
[2018-04-07] MEDS: GABAPENTIN 400 MG CAPSULE PO SCH ×3 (09:57→17:05)
[2018-04-07] MEDS: ARIPIPRAZOLE 2 MG TABLET PO SCH ×3 (09:57→17:05)
[2018-04-07] MEDS: TAMSULOSIN 0.4 MG CAP.SR.24H PO SCH (09:58)
[2018-04-07] MEDS: LORAZEPAM 0.5 MG TABLET PO PRN (11:38)
--- NOTE | 2018-04-07 11:38 | NUR ---
RN NOTES ADMINISTERED ATIVAN 0.5 MG PO PRN FOR ANXIETY PER PATIENT REQUEST, V/S TAKEN BP-126/73,P-84, CONTINUED MONITORING.
[2018-04-07] MEDS: HYDROGEL DRESSING 90 GM TUBE TP SCH (11:41)
[2018-04-07 16:53] VITALS: BP 139/84
[2018-04-07] MEDS: LamoTRIgine 100 MG TABLET PO SCH (20:38)
[2018-04-07 20:47] VITALS: BP 115/75
[2018-04-07] MEDS: TRAZODONE 50 MG TABLET PO SCH (21:21)
[2018-04-08 08:00] VITALS: BP 104/62
[2018-04-08] MEDS: ARIPIPRAZOLE 2 MG TABLET PO SCH ×3 (08:13→17:11)
[2018-04-08] MEDS: METFORMIN 500 MG TABLET PO SCH ×2 (08:13→17:11)
[2018-04-08] MEDS: TAMSULOSIN 0.4 MG CAP.SR.24H PO SCH (08:14)
[2018-04-08] MEDS: FINASTERIDE (5 MG) 5 MG TABLET PO SCH (08:14)
[2018-04-08] MEDS: busPIRone 5 MG TABLET PO SCH ×3 (08:14→17:11)
[2018-04-08] MEDS: GABAPENTIN 400 MG CAPSULE PO SCH ×3 (08:14→17:11)
[2018-04-08] MEDS: HYDROGEL DRESSING 90 GM TUBE TP SCH (08:16)
[2018-04-08 16:10] VITALS: BP 108/69
[2018-04-08 17:14] LABS: BASOPHILS % (AUTO) 0.3 % (0.0-2.0); EOSINOPHILS % (AUTO) 0.8 % (0.0-6.0); HEMATOCRIT 38 % (39-51); HEMOGLOBIN 12.1 g/dL (13.5-17.5); LYMPHOCYTES # (AUTO) 2.4 /CMM (0.8-4.8); LYMPHOCYTES % (AUTO) 28.7 % (20.0-44.0); MEAN CORPUSCULAR HGB CONC 32 g/dl (31.0-36.0); MEAN CORPUSCULAR VOLUME 99 fL (80-96); MONOCYTES # (AUTO) 0.7 /CMM (0.1-1.30); NEUTROPHILS # (AUTO) 5.1 /CMM (1.8-8.9); NEUTROPHILS % (AUTO) 61.2 % (43.0-81.0); PLATELET COUNT (AUTO) 341 /CMM (150-450); RDW COEFFICIENT OF VARIATION 13.2 (11.5-15.0); RED BLOOD CELL COUNT(AUTO) 3.82 MIL/uL (4.5-6.0); WHITE BLOOD COUNT (AUTO) 8.3 K/uL (4.3-11.0)
[2018-04-08 17:36] LABS: ALANINE AMINOTRANSFERASE 16 U/L (12-78); ALBUMIN 3.5 g/dL (3.4-5.0); ALKALINE PHOSPHATASE 65 U/L (46-116); ASPARTATE AMINOTRANSFERASE 10 U/L (15-37); BILIRUBIN,TOTAL 0.2 mg/dL (0.2-1.0); CALCIUM, SERUM 9.2 mg/dL (8.5-10.1); CARBON DIOXIDE 25 mmol/L (21-32); CHLORIDE 100 mmol/L (98-107); CREATININE 0.8 mg/dL (0.6-1.3); GLUCOSE 159 mg/dL (74-106); POTASSIUM 3.7 mmol/L (3.5-5.1); SODIUM SERUM 137 mmol/L (136-145); TOTAL PROTEIN, SERUM 7.2 g/dL (6.4-8.2); UREA NITROGEN, BLOOD 17 mg/dL (7-18)
[2018-04-08 20:00] VITALS: BP 118/67
[2018-04-08] MEDS: LamoTRIgine 100 MG TABLET PO SCH (20:08)
[2018-04-08 20:23] VITALS: BP 118/67
[2018-04-08 21:01] LABS: APPEARANCE,URINE CLEAR (CLEAR); BILIRUBIN,URINE NEGATIVE (NEGATIVE); BLOOD, URINE NEGATIVE Ery/uL (NEGATIVE); COLOR,URINE YELLOW (YELLOW); KETONES,URINE NEGATIVE (NEGATIVE); LEUKOCYTE ESTERASE ,URINE NEGATIVE (NEGATIVE); NITRITE, URINE NEGATIVE (NEGATIVE); PH,URINE 5.5 (5.0-8.0); PROTEIN,URINE NEGATIVE (NEGATIVE); UGLUCOSE 1+ mg/dL (NEGATIVE); UROBILINOGEN,URINE 0.2 EU/dL (0.2)
[2018-04-08 21:20] LABS: BACTERIA,URINE None seen /HPF (None Seen); CALCIUM OXALATE CRYSTALS,UR Moderate /HPF (None Seen); RBC,URINE 0-2 /HPF (0-2); SQUAMOUS EPITHELIAL CELL,UR Rare /HPF (None Seen); WBC,URINE 0-2 /HPF (0-3)
[2018-04-08] MEDS: TRAZODONE 50 MG TABLET PO SCH (21:36)
[2018-04-09 08:00] VITALS: BP 103/70
[2018-04-09] MEDS: FINASTERIDE (5 MG) 5 MG TABLET PO SCH (08:34)
[2018-04-09] MEDS: METFORMIN 500 MG TABLET PO SCH ×2 (08:34→16:07)
[2018-04-09] MEDS: GABAPENTIN 400 MG CAPSULE PO SCH ×3 (08:35→16:07)
[2018-04-09] MEDS: busPIRone 5 MG TABLET PO SCH ×3 (08:35→16:07)
[2018-04-09] MEDS: TAMSULOSIN 0.4 MG CAP.SR.24H PO SCH (08:36)
[2018-04-09] MEDS: HYDROGEL DRESSING 90 GM TUBE TP SCH (08:37)
[2018-04-09] MEDS: ARIPIPRAZOLE 2 MG TABLET PO SCH ×3 (08:37→16:07)
[2018-04-09 16:00] VITALS: BP 107/62
[2018-04-09 19:58] VITALS: BP 113/64
[2018-04-09] MEDS: LamoTRIgine 100 MG TABLET PO SCH (20:28)
[2018-04-09] MEDS: TRAZODONE 50 MG TABLET PO SCH (21:15)
[2018-04-10 08:00] VITALS: BP 118/76
[2018-04-10] MEDS: GABAPENTIN 400 MG CAPSULE PO SCH ×2 (08:38→12:02)
[2018-04-10] MEDS: TAMSULOSIN 0.4 MG CAP.SR.24H PO SCH (08:38)
[2018-04-10] MEDS: busPIRone 5 MG TABLET PO SCH ×2 (08:38→12:02)
[2018-04-10] MEDS: ARIPIPRAZOLE 2 MG TABLET PO SCH ×2 (08:38→12:02)
[2018-04-10] MEDS: FINASTERIDE (5 MG) 5 MG TABLET PO SCH (08:38)
[2018-04-10] MEDS: METFORMIN 500 MG TABLET PO SCH (08:38)
[2018-04-10] MEDS: HYDROGEL DRESSING 90 GM TUBE TP SCH (08:39)
--- NOTE | 2018-04-10 09:30 | NUR ---
CHELY faxed continuing care packet to Angie, pts telephonic nurse case manager and Psychiatrist Dr. Palma at [facility] Address: [address] [address], [place] [address] .
--- NOTE | 2018-04-10 10:28 | NUR ---
DR. MULLINS GAVE AN ORDER TO D/C HOLD AND D/C TO [facility] AND TO FOLLOW UP WITH PSYCH AND MEDICAL DOCTORS. PT. CONTINUE SAME MEDS INCLUDING PRN.
--- NOTE | 2018-04-10 13:27 | NUR ---
PATIENT LEFT THE UNIT AT 1325 WITH AMBULANCE SERVICE. PATIENT DENIES SI/HI DURING DISCHARGE. MEDICALLY STABLE. PSYCHIATRIST GAVE DISCHARGE ORDER, DC HOLD, AND CONT MEDS. OFFICE COORDINATOR RECEPTIONIST AWARE AND AGREES WITH DISCHARGE, CONT MEDS. BELONGINGS LEFT WITH PATIENT. DISCHARGE PAPERS SIGNED. EXIT CARE PAPERS EXPLAINED TO PATIENT. SKIN ASSESSMENT COMPLETE AND IN CHART.
--- NOTE | 2018-04-10 14:26 | NUR ---
DISCHARGE NOTE: Pt was discharged at 1:45pm via [facility] ambulance trip #[id number] to [facility] ([facility]) Address: [address] [facility], [place] [address] . Pts friend Stephen [phone] has been notified. Pts mood was pleasant with congruent affect. Pt denied suicidal/homicidal ideations and denied visual/auditory hallucinations. For smoking cessation, patient was referred to the [facility] or [facility] [id number]. Pt will be under the care of Psychiatrist: Dr. Lisset Whitten [address] [facility] [address] [address] [phone] and Aircraft Cabin Cleaner: Dr. Eleanor Hu [address] [facility] [address], [place] [address] [phone]. The multidisciplinary exitcare form was done, printed, signed, and given to the patient.
== END 2018-04-10 13:25 | DRG 876 ==
LOC: ER 16:34 → GPS 18:27
PROVIDERS: ADMIT Psychiatry & Neurology Psychosomatic Medicine; ATTEND Nurse Practitioner Acute Care
PROC: 0JB70ZZ Excision of Back Subcutaneous Tissue and Fascia, Open Approach (ICD-10-PCS; principal; 2018-04-04)
DX: F25.0 Schizoaffective disorder, bipolar type (principal); F01.50 Vascular dementia, unspecified severity, without behavioral disturbance, psychotic disturbance, mood disturbance, and anxiety; L89.153 Pressure ulcer of sacral region, stage 3; F23 Brief psychotic disorder; R45.851 Suicidal ideations; E11.9 Type 2 diabetes mellitus without complications; I10 Essential (primary) hypertension; E11.42 Type 2 diabetes mellitus with diabetic polyneuropathy; G40.909 Epilepsy, unspecified, not intractable, without status epilepticus; M54.30 Sciatica, unspecified side; Z79.84 Long term (current) use of oral hypoglycemic drugs; Z86.73 Personal history of transient ischemic attack (TIA), and cerebral infarction without residual deficits; N40.0 Benign prostatic hyperplasia without lower urinary tract symptoms
CPT/HCPCS: 36415; 80048-TC; 80053-TC; 80061-TC; 80076-TC; 81000-TC; 82565-TC; 82962-TC; 85025-TC; 87081-TC; 87086-TC; A4606; A6248; A6402; G0480; Z7610